=== PATIENT | male | born 1935 | race Caucasian/White ===

== ENCOUNTER → 2016-07-22 | Outpatient (CLI) | payer MEDICARE ==
[~2016-07-22] MED LIST: BACTROBAN OINT22 GM PO; ELIQUIS5 M1 PO; NATURE MADE D3 PO; PREVACID30 M1 PO; PRILOSEC10 MG PO; SYMBICORT1 AE1 INH; URINOZINC PROS100 MG PO; VICODIN 500 MG-1 TAB PO; ZANTAC 300300 MG PO
== END | disposition home or self-care (01) ==
LOC: US 10:37
DX: I82.412 Acute embolism and thrombosis of left femoral vein (principal)

== ENCOUNTER → 2016-10-20 | Outpatient (CLI) | payer MEDICARE | LOC: US 05:42 | DX: I82.532 Chronic embolism and thrombosis of left popliteal vein (principal) ==

== ENCOUNTER 2016-11-21 01:58 | Emergency (ER) | payer MEDICARE ==
[~2016-11-21] VITALS: Ht 172.7 cm; Wt 88.0 kg
== END 2016-11-21 04:59 | disposition home or self-care (01) ==
LOC: ED 01:58
DX: S01.01XA Laceration without foreign body of scalp, initial encounter (principal); J44.9 Chronic obstructive pulmonary disease, unspecified; K21.9 Gastro-esophageal reflux disease without esophagitis; Z86.718 Personal history of other venous thrombosis and embolism; Z79.899 Other long term (current) drug therapy; W18.09XA Striking against other object with subsequent fall, initial encounter; Y93.89 Activity, other specified; Y92.009 Unspecified place in unspecified non-institutional (private) residence as the place of occurrence of the external cause; Y99.8 Other external cause status

== ENCOUNTER → 2017-02-17 | Outpatient (CLI) | payer MEDICARE | END | disposition home or self-care (01) | LOC: US 05:50 | DX: I82.5Z2 Chronic embolism and thrombosis of unspecified deep veins of left distal lower extremity (principal) ==

== ENCOUNTER → 2017-09-11 | Outpatient (CLI) | payer MEDICARE ==
[~2017-09-11] MED LIST changes: +FISH OIL 1,4001 EACH PO; +LANSOPRAZOLE30 MG PO; +ZETIA10 MG PO
--- NOTE | ~2017-09-11 | ST ---
[place], [place] EXERCISE STRESS TEST REPORT NAME: ОЛЬГА MCCOLLUM [facility] #: [id number] UNIT #: [id number] ROOM: DOCTOR: YUMIKO HORN MD BIRTHDATE: [birth year] DOS: 09/11/2017 PHARMACOLOGIC MYOCARDIAL STRESS TEST INDICATIONS: Chest discomfort. REFERRING PHYSICIAN: Dr. Sherry Reza. PROCEDURE: The patient was given a rapid infusion of regadenoson 0.4 mg intravenously followed by a saline flush. He had no symptoms with the infusion. He did have a normal increase in heart rate from 58 at rest to 76 post-infusion. Blood pressure fell from 128/78-120/68. Forty seconds after the infusion, he was given regadenoson intravenously. IMPRESSION: 1. Well tolerated infusion of regadenoson. 2. Radionuclide injected. Please see the separate imaging report for further details of the patient's stress test results. YUMIKO HORN MD CM:STRESS:EXERCISE STRESS TEST REPORT [id number] YUMIKO HORN MD
== END | disposition home or self-care (01) ==
LOC: CARD 04:26
DX: R07.89 Other chest pain (principal); R53.81 Other malaise; R94.31 Abnormal electrocardiogram [ECG] [EKG]

== ENCOUNTER → 2017-09-19 | Outpatient (CLI) | payer MEDICARE | LOC: RAD 09:36 | DX: J84.10 Pulmonary fibrosis, unspecified (principal) ==

== ENCOUNTER → 2018-10-19 | Outpatient (CLI) | payer MEDICARE | END | disposition home or self-care (01) | LOC: CARD 01:50 | DX: I34.0 Nonrheumatic mitral (valve) insufficiency (principal) ==

== ENCOUNTER → 2018-11-30 | Outpatient (CLI) | payer MEDICARE | END | disposition home or self-care (01) | LOC: RESCLI 08:22 | DX: H91.93 Unspecified hearing loss, bilateral (principal); I34.9 Nonrheumatic mitral valve disorder, unspecified; K21.0 Gastro-esophageal reflux disease with esophagitis; N40.0 Benign prostatic hyperplasia without lower urinary tract symptoms; M54.9 Dorsalgia, unspecified; M54.2 Cervicalgia; I34.1 Nonrheumatic mitral (valve) prolapse; E55.9 Vitamin D deficiency, unspecified; G47.33 Obstructive sleep apnea (adult) (pediatric); J43.9 Emphysema, unspecified; E78.00 Pure hypercholesterolemia, unspecified; R53.82 Chronic fatigue, unspecified; D72.829 Elevated white blood cell count, unspecified; E78.1 Pure hyperglyceridemia; I82.512 Chronic embolism and thrombosis of left femoral vein; Z79.899 Other long term (current) drug therapy ==

== ENCOUNTER → 2019-01-07 | Outpatient (CLI) | payer MEDICARE ==
[2019-01-07 12:04] LABS: BASO % 0.4 % (0.0-1.0); EOS # 0.4 10*3/uL (0.0-0.4); EOS % 3.3 % (1.0-4.0); HEMATOCRIT 44.2 % (42.0-52.0); HEMOGLOBIN 14.6 g/dl (14.0-18.0); LYMPH # 1.3 10*3/uL (1.3-4.4); LYMPH % 11.3 % (27.0-41.0); MEAN CELL VOLUME 97.4 fl (80.0-94.0); MEAN CORPUSCULAR HGB 32.2 pg (27.0-31.0); MEAN PLATELET VOLUME 12.5 fl (9.6-12.3); MONO # 1.3 10*3/uL (0.1-1.0); MONO % 11.5 % (3.0-9.0); NEUT # 8.3 10*3/uL (2.3-7.9); NEUT % 73.2 % (47.0-73.0); PLATELET COUNT AUTOMATED 146 10*3/uL (130-400); RED BLOOD COUNT 4.54 10*6/uL (4.50-5.90); RED CELL DISTRI WIDTH 12.6 % (0-14.5); WHITE BLOOD COUNT 11.3 10*3/uL (4.8-10.8)
[2019-01-07 12:16] LABS: BUN 16 mg/dl (7-24); CHLORIDE 108 mmol/L (98-107); CREATININE 1.18 mg/dL (0.70-1.30); POTASSIUM 4.7 mmol/L (3.5-5.1); SODIUM 141 mmol/L (136-145)
[2019-01-07 12:22] LABS: CHOLESTEROL 173 mg/dL (<200); HDL CHOLESTEROL 36 mg/dl (40-60); IRON 110 ug/dL (65-175); LDL CHOLESTEROL 110 mg/dL (9-159); TOTAL IRON BINDING CAPACITY 232 ug/dl (250-450); TRIGLYCERIDES 135 mg/dl (<150); VLDL CHOLESTEROL 27 mg/dL (6-40)
[2019-01-07 13:09] LABS: FERRITIN 677.2 ng/mL (22.0-322.0)
== END | disposition home or self-care (01) ==
LOC: LAB 11:46
PROVIDERS: Hospitalist
DX: D72.829 Elevated white blood cell count, unspecified (principal); R53.82 Chronic fatigue, unspecified; Z79.899 Other long term (current) drug therapy; Z98.890 Other specified postprocedural states

== ENCOUNTER → 2019-01-11 | Outpatient (CLI) | payer MEDICARE | END | disposition home or self-care (01) | LOC: RESCLI 01:44 | DX: H91.93 Unspecified hearing loss, bilateral (principal); I34.9 Nonrheumatic mitral valve disorder, unspecified; K21.0 Gastro-esophageal reflux disease with esophagitis; N40.0 Benign prostatic hyperplasia without lower urinary tract symptoms; M54.9 Dorsalgia, unspecified; M54.2 Cervicalgia; I34.1 Nonrheumatic mitral (valve) prolapse; E55.9 Vitamin D deficiency, unspecified; G47.33 Obstructive sleep apnea (adult) (pediatric); J43.9 Emphysema, unspecified; E78.00 Pure hypercholesterolemia, unspecified; R53.82 Chronic fatigue, unspecified; D72.829 Elevated white blood cell count, unspecified; E78.1 Pure hyperglyceridemia; I82.512 Chronic embolism and thrombosis of left femoral vein; R42 Dizziness and giddiness; I95.1 Orthostatic hypotension; Z79.899 Other long term (current) drug therapy ==